=== PATIENT | male | born 1995 | race Caucasian/White ===

== ENCOUNTER 2016-10-19 16:04 | Inpatient (IN) | payer OTHER ==
[~2016-10-19] VITALS: Ht 170.2 cm; Wt 68.4 kg
[2016-10-19 16:34] LABS: HEMATOCRIT 42.6 % (38.0-50.0); MCH 30.8 PG (29.0-34.0); MCV 90.4 FL (86-99); MEAN PLAT.VOLUME 10.5 uM^3 (9.0-12.4); PLATELET COUNT 161 K/uL (156-360); RBC DIS.WIDTH-CV 12.5 % (11.8-14.6); RBC DIS.WIDTH-SD 40.9 % (39-53); RED BLOOD COUNT 4.71 M/uL (4.00-5.50); WHITE BLOOD COUNT 3.1 K/uL (4.1-10.2)
[2016-10-19 16:45] LABS: BASE EXCESS -0.5 mEq/L (-3 to +3); BICARBONATE 26.7 mEq/L (22-26); CARBOXY HGB 1.2 % (0-5); METHEMOGLOBIN 1.1 % (0-1.5); PCO2 53 mm Hg (35-45); PO2 126 mm Hg (80-100); SITE RR; pH 7.31 (7.35-7.45)
[2016-10-19 16:46] LABS: COMMENTS - BLOOD GASES A+C+; DEVICE 840 VENT; FI02 40 %; MECHANICAL RATE 14 resp/min; MODE AC; PEEP 5 CM/H20; TIDAL VOLUME 400 ML; TOTAL RESP RATE 14 resp/min
[2016-10-19 16:49] LABS: CHLORIDE 109 mEq/L (99-109); POTASSIUM 3.3 mEq/L (3.7-5.4); SODIUM 143 mEq/L (136-147)
[2016-10-19 16:50] LABS: ADD MIUA? NO; BILIRUBIN NEGATIVE; BLOOD NEGATIVE; COLOR YELLOW ((YELLOW)); GLUCOSE (STRIP) NEGATIVE; KETONES NEGATIVE; LEUKOCYTES NEGATIVE; NITRITE NEGATIVE; PROTEIN (STRIP) NEGATIVE; SPECIFIC GRAVITY 1.012 (1.000-1.030); UROBILINOGEN 0.2 MG/DL (0.2-1.0)
[2016-10-19 16:52] LABS: GLUCOSE 151 mg/dL (70-99)
[2016-10-19 16:53] LABS: ANION GAP 12 MEQ/L (2-14); TOTAL BILIRUBIN 0.9 mg/dL (0.0-1.0)
[2016-10-19 16:54] LABS: SERUM ETHYL ALCOHOL < 10 mg/dL
[2016-10-19 16:55] LABS: GFR ESTIMATE (CALCULATED) > 59 mL/min/
[2016-10-19 16:56] LABS: ALKALINE PHOSPHATASE 88 IU/L (3-129)
[2016-10-19 16:57] LABS: UREA NITROGEN (BUN) 9 mg/dL (9-23)
[2016-10-19 16:59] LABS: SALICYLATE < 5.0 MG/DL (15-30)
[2016-10-19 16:59] LABS: AMPHETAMINE NEGATIVE (500 ng/mL); BARBITURATES NEGATIVE (200 ng/mL); BENZODIAZEPINES NEGATIVE (150 ng/mL); COCAINE NEGATIVE (150 ng/mL); INTERNAL CONTROLS VALID? YES; METHADONE NEGATIVE (200 ng/mL); METHAMPHETAMINE NEGATIVE (500 ng/mL); OPIATES (MORPHINE) NEGATIVE (100 ng/mL); OXYCODONE NEGATIVE (100 ng/mL); PHENCYCLIDINE NEGATIVE (25 ng/mL); PROPOXYPHENE NEGATIVE (300 ng/mL); THC CANNABINOIDS NEGATIVE (50 ng/mL); TRICYCLIC ANTIDEPRESSANTS NEGATIVE (300 ng/mL)
[2016-10-19 19:08] LABS: MAGNESIUM 2.2 mg/dL (1.3-2.7)
[2016-10-19 19:30] VITALS: BP 123/76; BP 130/81
[2016-10-19 20:04] VITALS: BP 119/65
[2016-10-19 21:00] VITALS: BP 112/61
[2016-10-19 21:32] LABS: METH RESISTANT S AUREUS PCR NEGATIVE (NEGATIVE); PROBE CHECK PASS; SPECIMEN PROCESSING CONTROL PASS
[2016-10-19 22:00] VITALS: BP 109/58
[2016-10-19 23:00] VITALS: BP 115/75
[2016-10-20] VITALS (23 sets, daily range): BP systolic 76–128; BP diastolic 37–74
[2016-10-20] MEDS ORDERED: RISPERDAL4 MG PO (09:48)
[2016-10-20] MEDS ORDERED: COGENTIN0.5 MG PO (09:48)
[2016-10-20] MEDS ORDERED: LAMOTRIGINE100 MG PO (09:49)
[2016-10-20] MEDS ORDERED: DESYREL100 MG PO (09:49)
[2016-10-20] MEDS ORDERED: RISPERDAL2 MG PO (09:50)
[2016-10-20] MEDS ORDERED: TRILEPTAL600 MG PO (09:50)
[2016-10-20 11:43] LABS: BICARBONATE 29.4 mEq/L (22-26); CARBOXY HGB 1.6 % (0-5); COMMENTS - BLOOD GASES A+C+; DEVICE VENT; FI02 30 %; MECHANICAL RATE 10 resp/min; METHEMOGLOBIN 1.7 % (0-1.5); MODE SIMV; PCO2 52 mm Hg (35-45); PEEP 5 CM/H20; PO2 147 mm Hg (80-100); PRES. SUPPORT 5 CM/H2O; SITE RR; TIDAL VOLUME 500 ML; TOTAL RESP RATE 10 resp/min; pH 7.36 (7.35-7.45)
[2016-10-20 14:28] LABS: CREATINE KINASE 48 IU/L (1-294); TOTAL CK 48 IU/L (1-294)
[2016-10-20 15:31] LABS: CK-MB 0.4 ng/mL (0.0-4.9)
[2016-10-21] VITALS (12 sets, daily range): BP systolic 86–116; BP diastolic 52–68
[2016-10-21] MEDS ORDERED: TRILEPTAL600 MG PO (21:13)
[2016-10-21] MEDS ORDERED: LAMICTAL100 MG PO (21:14)
[2016-10-21] MEDS ORDERED: TRAZODONE HCL100 MG PO (21:15)
[2016-10-21] MEDS ORDERED: RISPERDAL2 MG PO (21:15)
[2016-10-21] MEDS ORDERED: COGENTIN0.5 MG PO (21:16)
[2016-10-21] MEDS ORDERED: RISPERDAL4 MG PO (21:16)
== END 2016-10-21 19:59 | DRG 917 ==
LOC: EME 16:04 → 4WEST 17:32 → EDOF 17:32 → 4WEST 19:25
PROVIDERS: Emergency Medicine; Internal Medicine Critical Care Medicine; Surgery
DX: T50.992A Poisoning by other drugs, medicaments and biological substances, intentional self-harm, initial encounter (principal); J96.00 Acute respiratory failure, unspecified whether with hypoxia or hypercapnia; G92 Toxic encephalopathy; Y92.9 Unspecified place or not applicable; F31.9 Bipolar disorder, unspecified; F25.9 Schizoaffective disorder, unspecified; F90.9 Attention-deficit hyperactivity disorder, unspecified type; R40.2432 Glasgow coma scale score 3-8, at arrival to emergency department; I45.81 Long QT syndrome; H57.04 Mydriasis; Z62.812 Personal history of neglect in childhood; R27.0 Ataxia, unspecified; J32.9 Chronic sinusitis, unspecified; G93.89 Other specified disorders of brain
CPT/HCPCS: 36600; 70450; 71010; 80053; 81003; 82550; 82553; 82803; 83735; 84100; 85027; 87070; 87205; 87641; 93005; 93306; 94002; 94003; 99281; 99285; C9113; G0480; J1644; J1953; J2704; J3480; J7030; J7050; S0028

== ENCOUNTER 2016-10-21 19:43 | Inpatient (IN) | payer OTHER ==
[~2016-10-21] VITALS: Ht 170.2 cm; Wt 67.1 kg
[~2016-10-21 19:43] MED LIST: COGENTIN0.5 MG PO; DESYREL100 MG PO; LAMOTRIGINE100 MG PO; RISPERDAL2 MG PO; RISPERDAL4 MG PO; TRILEPTAL600 MG PO
[2016-10-21 20:22] VITALS: BP 128/75
[2016-10-21] MEDS ORDERED: TRILEPTAL600 MG PO (21:13)
[2016-10-21] MEDS ORDERED: LAMICTAL100 MG PO (21:14)
[2016-10-21] MEDS ORDERED: TRAZODONE HCL100 MG PO (21:15)
[2016-10-21] MEDS ORDERED: RISPERDAL2 MG PO (21:15)
[2016-10-21] MEDS ORDERED: COGENTIN0.5 MG PO (21:16)
[2016-10-21] MEDS ORDERED: RISPERDAL4 MG PO (21:16)
[2016-10-22 07:18] VITALS: BP 120/68
[2016-10-22 15:24] VITALS: BP 116/61
[2016-10-23 07:33] VITALS: BP 115/59
[2016-10-23 15:35] VITALS: BP 121/57
[2016-10-24 07:23] VITALS: BP 108/62
[2016-10-24 15:23] VITALS: BP 109/56
[2016-10-25 07:35] VITALS: BP 104/58
== END 2016-10-25 12:42 | disposition home or self-care (01) | DRG 885 ==
LOC: 1WEST 19:43
DX: F31.9 Bipolar disorder, unspecified (principal); F81.9 Developmental disorder of scholastic skills, unspecified; F90.9 Attention-deficit hyperactivity disorder, unspecified type; F63.9 Impulse disorder, unspecified; F84.9 Pervasive developmental disorder, unspecified; F84.0 Autistic disorder
CPT/HCPCS: 97165 GO; 97530 GO

== ENCOUNTER 2016-10-27 08:52 | Emergency (ER) | payer OTHER ==
[~2016-10-27] VITALS: Ht 177.8 cm; Wt 67.3 kg
[~2016-10-27 08:52] MED LIST changes: +LAMICTAL100 MG PO; +TRAZODONE HCL100 MG PO
[2016-10-27] MEDS ORDERED: TRILEPTAL600 MG PO (10:17)
[2016-10-27] MEDS ORDERED: COGENTIN0.5 MG PO (10:17)
[2016-10-27] MEDS ORDERED: BUSPAR10 MG PO (10:17)
[2016-10-27] MEDS ORDERED: TRAZODONE HCL300 MG PO (10:17)
[2016-10-27] MEDS ORDERED: SEROQUEL50 MG PO (10:17)
[2016-10-27] MEDS ORDERED: LAMICTAL100 MG PO (10:17)
[2016-10-27] MEDS ORDERED: RISPERDAL2 MG PO (10:17)
[2016-10-27 10:36] VITALS: BP 122/85
== END 2016-10-27 10:40 | disposition home or self-care (01) ==
LOC: EME 08:52
DX: F31.12 Bipolar disorder, current episode manic without psychotic features, moderate (principal); F84.0 Autistic disorder; F41.9 Anxiety disorder, unspecified
CPT/HCPCS: 90839; 99281; 99284

== ENCOUNTER 2016-11-07 23:05 | Emergency (ER) | payer OTHER ==
[~2016-11-07] VITALS: Ht 177.8 cm; Wt 71.4 kg
[~2016-11-07 23:05] MED LIST changes: +BUSPAR10 MG PO; +SEROQUEL50 MG PO; +TRAZODONE HCL300 MG PO
[2016-11-08 00:29] LABS: ADD MIUA? NO; BILIRUBIN NEGATIVE; BLOOD NEGATIVE; COLOR YELLOW ((YELLOW)); GLUCOSE (STRIP) NEGATIVE; KETONES NEGATIVE; LEUKOCYTES NEGATIVE; NITRITE NEGATIVE; PROTEIN (STRIP) NEGATIVE; SPECIFIC GRAVITY 1.013 (1.000-1.030); UCUL ADDED? NO; UROBILINOGEN 0.2 MG/DL (0.2-1.0)
[2016-11-08 00:36] LABS: AMPHETAMINE NEGATIVE (500 ng/mL); BARBITURATES NEGATIVE (200 ng/mL); BENZODIAZEPINES NEGATIVE (150 ng/mL); COCAINE NEGATIVE (150 ng/mL); INTERNAL CONTROLS VALID? YES; METHADONE NEGATIVE (200 ng/mL); METHAMPHETAMINE NEGATIVE (500 ng/mL); OPIATES (MORPHINE) NEGATIVE (100 ng/mL); OXYCODONE NEGATIVE (100 ng/mL); PHENCYCLIDINE NEGATIVE (25 ng/mL); PROPOXYPHENE NEGATIVE (300 ng/mL); THC CANNABINOIDS NEGATIVE (50 ng/mL); TRICYCLIC ANTIDEPRESSANTS NEGATIVE (300 ng/mL)
[2016-11-08 01:33] VITALS: BP 116/78
== END 2016-11-08 01:34 | disposition home or self-care (01) ==
LOC: EME → EDBD 23:05 → EME 23:05
PROVIDERS: Emergency Medicine
DX: F32.9 Major depressive disorder, single episode, unspecified (principal); F90.9 Attention-deficit hyperactivity disorder, unspecified type; F43.10 Post-traumatic stress disorder, unspecified; Z04.6 Encounter for general psychiatric examination, requested by authority
CPT/HCPCS: 81003; 90837; 99281; 99284

== ENCOUNTER 2016-12-02 13:26 | Emergency (ER) | payer OTHER ==
[~2016-12-02] VITALS: Ht 177.8 cm; Wt 70.4 kg
[2016-12-02 13:57] LABS: HEMATOCRIT 43.1 % (38.0-50.0); MCH 30.5 PG (29.0-34.0); MCHC 33.9 G/DL (30.0-36.0); MEAN PLAT.VOLUME 9.5 uM^3 (9.0-12.4); PLATELET COUNT 221 K/uL (156-360); RBC DIS.WIDTH-CV 12.3 % (11.8-14.6); RBC DIS.WIDTH-SD 40.6 % (39-53); RED BLOOD COUNT 4.79 M/uL (4.00-5.50); WHITE BLOOD COUNT 6.4 K/uL (4.1-10.2)
[2016-12-02 14:06] LABS: CHLORIDE 108 mEq/L (99-109); POTASSIUM 3.9 mEq/L (3.7-5.4); SODIUM 141 mEq/L (136-147)
[2016-12-02 14:10] LABS: GLUCOSE 105 mg/dL (70-99); TOTAL BILIRUBIN 0.6 mg/dL (0.0-1.0)
[2016-12-02 14:11] LABS: ANION GAP 10 MEQ/L (2-14)
[2016-12-02 14:13] LABS: SERUM ETHYL ALCOHOL < 10 mg/dL
[2016-12-02 14:14] LABS: ALKALINE PHOSPHATASE 107 IU/L (3-129); GFR ESTIMATE (CALCULATED) > 59 mL/min/
[2016-12-02 14:15] LABS: UREA NITROGEN (BUN) 15 mg/dL (9-23)
[2016-12-02 15:56] VITALS: BP 127/67
== END 2016-12-02 16:14 | disposition home or self-care (01) ==
LOC: EME 13:26
PROVIDERS: Emergency Medicine
DX: F32.9 Major depressive disorder, single episode, unspecified (principal); Z04.6 Encounter for general psychiatric examination, requested by authority; F90.9 Attention-deficit hyperactivity disorder, unspecified type
CPT/HCPCS: 80053; 80175 90; 81003; 85027; 90837; 99281; 99285; G0480

== ENCOUNTER 2017-02-16 00:49 | Emergency (ER) | payer OTHER ==
[~2017-02-16] VITALS: Ht 177.8 cm; Wt 69.6 kg
[2017-02-16 01:35] LABS: HEMATOCRIT 38.8 % (38.0-50.0); MCH 30.8 PG (29.0-34.0); MCHC 34.3 G/DL (30.0-36.0); MCV 89.8 FL (86-99); MEAN PLAT.VOLUME 9.1 uM^3 (9.0-12.4); PLATELET COUNT 169 K/uL (156-360); RBC DIS.WIDTH-SD 39.6 % (39-53); RED BLOOD COUNT 4.32 M/uL (4.00-5.50)
[2017-02-16 01:46] LABS: CHLORIDE 105 mEq/L (99-109); POTASSIUM 3.6 mEq/L (3.7-5.4); SODIUM 141 mEq/L (136-147)
[2017-02-16 01:48] LABS: GLUCOSE 96 mg/dL (70-99)
[2017-02-16 01:49] LABS: ANION GAP 9 MEQ/L (2-14)
[2017-02-16 01:51] LABS: SERUM ETHYL ALCOHOL < 10 mg/dL
[2017-02-16 01:52] LABS: GFR ESTIMATE (CALCULATED) > 59 mL/min/
[2017-02-16 01:53] LABS: UREA NITROGEN (BUN) 18 mg/dL (9-23)
[2017-02-16 10:37] LABS: ADD MIUA? NO; BILIRUBIN SMALL; BLOOD NEGATIVE; COLOR AMBER ((YELLOW)); GLUCOSE (STRIP) NEGATIVE; KETONES NEGATIVE; LEUKOCYTES NEGATIVE; NITRITE NEGATIVE; PROTEIN (STRIP) 30; SPECIFIC GRAVITY 1.031 (1.000-1.030)
[2017-02-16 10:38] LABS: UCUL ADDED? NO
[2017-02-16 10:39] LABS: AMPHETAMINE NEGATIVE (500 ng/mL); BARBITURATES NEGATIVE (200 ng/mL); BENZODIAZEPINES NEGATIVE (150 ng/mL); COCAINE NEGATIVE (150 ng/mL); INTERNAL CONTROLS VALID? YES; METHADONE NEGATIVE (200 ng/mL); METHAMPHETAMINE PRESUMPTIVE POSITIVE (500 ng/mL); OPIATES (MORPHINE) NEGATIVE (100 ng/mL); OXYCODONE NEGATIVE (100 ng/mL); PHENCYCLIDINE NEGATIVE (25 ng/mL); PROPOXYPHENE NEGATIVE (300 ng/mL); THC CANNABINOIDS NEGATIVE (50 ng/mL); TRICYCLIC ANTIDEPRESSANTS PRESUMPTIVE POSITIVE (300 ng/mL)
[2017-02-16 14:15] VITALS: BP 117/88
== END 2017-02-16 14:28 ==
LOC: EME 00:49
PROVIDERS: Emergency Medicine
DX: R44.0 Auditory hallucinations (principal); R45.851 Suicidal ideations; F31.9 Bipolar disorder, unspecified; F84.0 Autistic disorder; F90.9 Attention-deficit hyperactivity disorder, unspecified type; Z91.5 Personal history of self-harm
CPT/HCPCS: 80048; 81003; 85027; 90837; 99281; 99284; G0480

== ENCOUNTER 2017-04-06 20:19 | Emergency (ER) | payer OTHER ==
[~2017-04-06] VITALS: Ht 177.8 cm; Wt 68.3 kg
[2017-04-06 22:15] VITALS: BP 113/80
== END 2017-04-06 22:19 | disposition home or self-care (01) ==
LOC: EME 20:19
DX: F43.20 Adjustment disorder, unspecified (principal); F31.9 Bipolar disorder, unspecified; F84.0 Autistic disorder; Z04.6 Encounter for general psychiatric examination, requested by authority; F43.10 Post-traumatic stress disorder, unspecified; F90.9 Attention-deficit hyperactivity disorder, unspecified type; F60.3 Borderline personality disorder
CPT/HCPCS: 90837; 99281; 99285

== ENCOUNTER 2017-08-12 15:23 | Emergency (ER) | payer OTHER ==
[~2017-08-12] VITALS: Ht 177.8 cm; Wt 72.0 kg
[2017-08-12 16:04] LABS: BASOPHIL (%) 0.3 % (0-1); EOSINOPHIL (%) 0.3 % (0-5); HEMATOCRIT 42.7 % (38.0-50.0); HEMOGLOBIN 14.3 G/DL (12.5-16.6); IMMATURE GRANULOCYTE (%) 0.4 % (0.0-0.7); LYMPHOCYTE COUNT 1.4 K/uL (1.0-2.8); MCHC 33.5 G/DL (30.0-36.0); MCV 89.7 FL (86-99); MONOCYTE (%) 8.6 % (3-12); MONOCYTE COUNT 0.6 K/uL (0-0.8); NEUTROPHIL (%) 71.4 % (45-76); NEUTROPHIL COUNT 5.3 K/uL (1.8-6.4); PLATELET COUNT 253 K/uL (156-360); RBC DIS.WIDTH-CV 12.3 % (11.8-14.6); RBC DIS.WIDTH-SD 40.8 % (39-53); RED BLOOD COUNT 4.76 M/uL (4.00-5.50); WHITE BLOOD COUNT 7.5 K/uL (4.1-10.2)
[2017-08-12 16:14] LABS: ALBUMIN 4.1 g/dL (3.2-4.8); CHLORIDE 106 mEq/L (99-109); SODIUM 141 mEq/L (136-147)
[2017-08-12 16:16] LABS: GLUCOSE 101 mg/dL (70-99)
[2017-08-12 16:17] LABS: TOTAL PROTEIN 6.5 g/dL (6.4-8.3)
[2017-08-12 16:18] LABS: TOTAL BILIRUBIN 0.5 mg/dL (0.0-1.0)
[2017-08-12 16:19] LABS: SERUM ETHYL ALCOHOL < 10 mg/dL
[2017-08-12 16:20] LABS: CREATININE 0.9 mg/dL (0.6-1.3); GFR ESTIMATE (CALCULATED) > 59 mL/min/ (58.99-99999)
[2017-08-12 16:21] LABS: ALKALINE PHOSPHATASE 106 IU/L (3-129)
[2017-08-12 16:22] LABS: AST (GOT) 16 IU/L (2-34); UREA NITROGEN (BUN) 14 mg/dL (9-23)
[2017-08-12 16:23] LABS: SALICYLATE < 5.0 MG/DL (15-30)
[2017-08-12 16:24] LABS: ACETAMINOPHEN (TYLENOL) < 10 mcg/mL (10-30); ALT (GPT) 12 IU/L (3-49)
[2017-08-12 17:05] LABS: IRON 144 MCG/DL (35-150)
[2017-08-12 17:18] LABS: APPEARANCE CLEAR ((CLEAR)); BILIRUBIN NEGATIVE; BLOOD NEGATIVE; COLOR YELLOW ((YELLOW)); GLUCOSE (STRIP) NEGATIVE; KETONES NEGATIVE; LEUKOCYTES NEGATIVE; NITRITE NEGATIVE; PROTEIN (STRIP) NEGATIVE; SPECIFIC GRAVITY 1.012 (1.000-1.030); UCUL ADDED? NO; UROBILINOGEN 0.2 MG/DL (0.2-1.0)
[2017-08-12 17:39] LABS: AMPHETAMINE NEGATIVE (500 ng/mL); BARBITURATES NEGATIVE (200 ng/mL); BENZODIAZEPINES NEGATIVE (150 ng/mL); BUPRENORPHINE NEGATIVE (10 ng/mL); COCAINE NEGATIVE (150 ng/mL); METHADONE NEGATIVE (200 ng/mL); METHAMPHETAMINE NEGATIVE (500 ng/mL); OPIATES (MORPHINE) NEGATIVE (100 ng/mL); OXYCODONE NEGATIVE (100 ng/mL); PHENCYCLIDINE NEGATIVE (25 ng/mL); PROPOXYPHENE NEGATIVE (300 ng/mL); THC CANNABINOIDS NEGATIVE (50 ng/mL); TRICYCLIC ANTIDEPRESSANTS NEGATIVE (300 ng/mL)
[2017-08-12 18:57] VITALS: BP 116/82
== END 2017-08-12 18:57 | disposition home or self-care (01) ==
LOC: EME 15:23
PROVIDERS: Physician Assistant
DX: T45.2X2A Poisoning by vitamins, intentional self-harm, initial encounter (principal); R45.851 Suicidal ideations; F31.9 Bipolar disorder, unspecified; F84.0 Autistic disorder; F43.10 Post-traumatic stress disorder, unspecified; F90.9 Attention-deficit hyperactivity disorder, unspecified type
CPT/HCPCS: 80053; 81003; 83540; 85025; 90839; 99281; 99284; G0480